=== PATIENT | female | born 1955 | race Caucasian/White ===

== ENCOUNTER 2021-10-30 17:13 | Emergency (ER) | payer OTHER, SELFPAY ==
[2021-10-30] VITALS (16 sets, daily range): BP systolic 119–144; BP diastolic 65–79; PULSE 59–74; RESP 13–24; TEMP 36.1; O2SAT 95–99; BMI 23.5
--- NOTE | 2021-10-30 17:22 | DI.RAD.S_ITS ---
PROCEDURE: XR SHOULDER LT MIN 2V INDICATIONS: possibly shoulder dislocation TECHNIQUE: 2 views of the shoulder were acquired. COMPARISON: None. FINDINGS: Bones: Humeral head is inferiorly subluxed from the glenohumeral joint space. One view does demonstrate what appears to be an anterior dislocation. However, patient is in oblique positioning. Soft tissues: No suspicious soft tissue calcifications. IMPRESSION: Suspected anterior dislocation with inferior subluxation of the humeral head. It is noted that both views obtained are obliqued, which may exaggerate finding. Dictated by: Lala Ortiz M.D. on 10/30/2021 at 17:39 Approved by: Lala Ortiz M.D. on 10/30/2021 at 17:41
--- NOTE | 2021-10-30 17:40 | DI.RAD.S_ITS ---
PROCEDURE: XR SHOULDER LT MIN 2V INDICATIONS: post reduction TECHNIQUE: 2 views of the shoulder were acquired. COMPARISON: [facility], CR, XR SHOULDER LT MIN 2V, 10/30/2021, 17:12. FINDINGS: Bones: There is improved alignment although still appearance of mild anterior dislocation. No fractures. Soft tissues: No suspicious soft tissue calcifications. IMPRESSION: Improved although persistent mild anterior dislocation. Dictated by: Lala Ortiz M.D. on 10/30/2021 at 18:15 Approved by: Lala Ortiz M.D. on 10/30/2021 at 18:15
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
[2021-10-30] MEDS: propofoL 200 MG/20 ML VIAL 70 MG IV (17:53)
[2021-10-30] MEDS: KETOROLAC 30 MG/ML VIAL 15 MG IV (18:03)
== END 2021-10-30 18:48 | disposition home or self-care (01) ==
PROVIDERS: Emergency Provider Emergency Medicine
DX: S43.015A Anterior dislocation of left humerus, initial encounter (principal); X58.XXXA Exposure to other specified factors, initial encounter
CPT/HCPCS: 23650; 73030; 96374; 99152; 99284; J1885; J2704